=== PATIENT | female | born 1975 | race Caucasian/White ===

== ENCOUNTER 2021-08-06 00:30 | Emergency (ER) | payer OTHER, SELFPAY ==
[2021-08-06 00:31] VITALS: BMI 34.1
[2021-08-06 00:36] VITALS: BP 150/88; PULSE 76; RESP 18; TEMP 36.4; O2SAT 96
--- NOTE | 2021-08-06 00:44 | W.ED.WEAKNES ---
Documented by User: ROSIE Enriquez 08/06/21 02:06 HPI - Weakness General: Chief complaint: Weakness Stated complaint: NOT FEELING WELL Time Seen by Provider: 08/06/21 00:38 History of Present Illness: 46-year-old female comes in today for complaints of weakness and malaise for last 3 days. Patient use methamphetamines up until 4 days ago. Patient reports that for the last 45 days she has been without her medications for her diabetes and her hypothyroidism. Patient appears nontoxic. Patient appears in no pain. Patient denies any fever, vomiting, diarrhea, or chills. Associated symptoms: Denies chest pain, nausea or vomiting Review of Systems General: Reports: 10 or more systems reviewed and unremarkable except in HPI and below Const: Reports: fatigue and malaise Eyes: Denies: change in vision ENMT: Reports: throat pain Card: Denies: chest pain Resp: Denies: dyspnea GI: Denies: nausea, vomiting or diarrhea : Denies: difficulty voiding Musc: Denies: back pain Skin/Breast: Denies: rash Neuro: Reports: weakness in extremities Physical Exam Const: COMMON NORMALS: alert HENMT: COMMON NORMALS: normocephalic HEAD & SCALP: normocephalic Neck/C-Spine: COMMON NORMALS: full ROM Resp: COMMON NORMALS: normal respiratory effort and clear to auscultation bilaterally AUSCULTATION: clear to auscultation bilaterally Cardio: COMMON NORMALS: regular rate and regular rhythm RATE: regular rate RHYTHM: regular rhythm GI: COMMON NORMALS: Soft to palpation and non-tender PALPATION: Yes Soft to palpation Extremity: COMMON NORMALS: no pedal edema Neuro: HANY COMA SCALE: document GCS findings Hany coma scale eye opening: Spontaneous [place] coma scale verbal response: Orientated [place] coma scale motor response: [place]bey commands Hany coma scale total score: 15 SENSORIUM/ORIENTATION: Yes alert Psych: COMMON NORMALS: cooperative Skin: COMMON NORMALS: no rashes or lesions noted GENERAL SKIN EXAM: no rashes or lesions noted Course Vital Signs: Vital signs: Vital Signs Temperature 97.6 F 08/06/21 00:36 Pulse Rate 82 08/06/21 03:40 Respiratory Rate 17 08/06/21 03:40 Blood Pressure 146/99 08/06/21 03:40 Pulse Oximetry 95 08/06/21 03:40 MDM - Weakness Medical Decision Making 46-year-old female comes in today with complaints of malaise and weakness. Patient reports being out of her thyroid medication for the last 3 months. Patient had recently used methamphetamines about 3 to 4 days ago. Patient appears nontoxic. Patient responds appropriate to questions. [place] is dry. Skin is warm and dry. Vital signs are normal. Differential diagnosis includes but not limited to substance abuse, dehydration, hypothyroidism, acute kidney injury. Laboratory values noted a white blood cell count 11.3. CMP noted a creatinine of 1.0. CPK was 800. TSH was 191. We will restart patient on her levothyroxine at 125 mcg. Patient should follow-up with primary care in 1 to 2 weeks for recheck. Encourage patient not to use methamphetamines. Encourage plenty of fluids and follow-up with primary care. Believe the patient CPK was elevated due to dehydration and the use of methamphetamines. Patient has decent renal function I expect her to recover well she was hydrated with 2 L of normal saline. Lab Data : 08/06/21 00:36 08/06/21 00:36 Laboratory Results WBC 11.3 10^3/uL (4.0-10.0) H 08/06/21 00:36 RBC 4.38 10^6/uL (4.1-5.3) 08/06/21 00:36 Hgb 13.3 g/dL (11.5-15.3) 08/06/21 00:36 Hct 40.0 % (37.0-47.0) 08/06/21 00:36 MCV 91.3 fl (81-99) 08/06/21 00:36 MCH 30.4 pg (28.0-34.0) 08/06/21 00:36 MCHC 33.3 g/dL (30.0-36.0) 08/06/21 00:36 RDW 15.0 % (12.1-15.1) 08/06/21 00:36 Plt Count 333 10^3/cmm (130-400) 08/06/21 00:36 MPV 9.4 fL (7.4-10.4) 08/06/21 00:36 Neut % (Auto) 45.8 % 08/06/21 00:36 Lymph % (Auto) 46.2 % 08/06/21 00:36 [facility] % (Auto) 5.0 % 05 00:36 Eos % (Auto) 2.3 % 08/06/21 00:36 Baso % (Auto) 0.3 % 08/06/21 00:36 Neut # (Auto) 5.17 10^3/uL (1.8-7.7) 08/06/21 00:36 Lymph # (Auto) 5.2 10^3/uL (0.8-4.8) H 08/06/21 00:36 [facility] # (Auto) 0.6 10^3/uL (0.2-0.9) 08/06/21 00:36 Eos # (Auto) 0.3 10^3/uL (0.0-0.8) 08/06/21 00:36 Baso # (Auto) 0.0 10^3/uL (0.0-0.1) 08/06/21 00:36 Nucleated RBC % (auto) 0 % 08/06/21 00:36 Nucleated RBCs # 0.0 /100WBC 08/06/21 00:36 Sodium 136 mmol/L (136-145) 08/06/21 00:36 Potassium 3.6 mmol/L (3.5-5.1) 08/06/21 00:36 Chloride 98 mmol/L (98-107) 08/06/21 00:36 Carbon Dioxide 27 mmol/L (22-29) 08/06/21 00:36 Anion Gap 14.6 (5-19) 08/06/21 00:36 BUN 11 mg/dL (6-20) 08/06/21 00:36 Creatinine 1.0 mg/dL (0.5-0.9) H 08/06/21 00:36 GFR Calculation 60.0 mL/min (90-130) L 08/06/21 00:36 Glucose 151 mg/dL (65-115) H 08/06/21 00:36 Calculated Osmolality 284 mOsm/kg (285-295) L 08/06/21 00:36 Calcium 9.3 mg/dL (8.5-10.5) 08/06/21 00:36 Total Bilirubin 0.2 mg/dL (0.15-1.2) 08/06/21 00:36 AST 40 U/L (0-32) H 08/06/21 00:36 ALT 32 U/L (0-33) 08/06/21 00:36 Alkaline Phosphatase 96 IU/L (35-105) 08/06/21 00:36 Creatine Kinase 843 U/L (26-192) H* 08/06/21 00:36 Total Protein 7.1 g/dL (6.6-8.7) 08/06/21 00:36 Albumin 4.4 g/dL (3.5-5.2) 08/06/21 00:36 Globulin 2.7 g/dL (1.3-4.6) 08/06/21 00:36 TSH 191.20 uIU/mL (0.27-4.20) H 08/06/21 00:36 TSH Cancelled 08/06/21 00:36 Urine Color Yellow (Yellow) 08/06/21 01:02 Urine Appearance Clear (CLEAR) 08/06/21 01:02 Urine pH 6.5 (5-7) 08/06/21 01:02 Ur Specific [place] 1.020 (1.005-1.030) 08/06/21 01:02 Urine Protein Neg (Negative) 08/06/21 01:02 Urine Glucose (UA) Norm (Normal) 08/06/21 01:02 Urine Ketones Negative (Negative) 08/06/21 01:02 Urine Blood Neg (Negative) 08/06/21 01:02 Urine Nitrate Negative (Negative) 08/06/21 01:02 Urine Bilirubin Neg (Negative) 08/06/21 01:02 Urine Urobilinogen 1 mg/dL (Negative) H 08/06/21 01:02 Ur Leukocyte Esterase Negative (Negative) 08/06/21 01:02 Discharge Plan Discharge Patient Disposition: Home Clinical Impression: Dehydration Hypothyroidism Qualifiers: Hypothyroidism type: unspecified Qualified Code(s): E03.9 - Hypothyroidism, unspecified Condition: Stable Prescriptions: New levothyroxine 125 mcg capsule 125 mcg PO DAILY Qty: 30 2RF Discharge Orders: Discharge ED (Routine); Ordered 08/06/21 Ordered By: Pedro Luis Waters Discharge Diet: Usual diet Discharge Activity: Increase activity as tolerated Patient Instructions: Hypothyroidism (ED) Activity Restrictions/Additional Instructions: Home and rest. Drink plenty of fluids. Continue with routine medications. Follow-up with primary care for further instructions. Return to ER for new concerns Coding Level of Care Code ED Optomechanical Engineer for Chg Fwd Exam Comprehensive Documented by User: Ta Herrera DO 08/06/21 04:14 HPI - Weakness General: Chief complaint: Weakness Stated complaint: NOT FEELING WELL Time Seen by Provider: 08/06/21 00:38 Physical Exam Neuro: HANY COMA SCALE: document GCS findings [place] coma scale total score: 15 Course Vital Signs: Vital signs: Vital Signs Temperature 97.6 F 08/06/21 00:36 Pulse Rate 82 08/06/21 03:40 Respiratory Rate 17 08/06/21 03:40 Blood Pressure 146/99 08/06/21 03:40 Pulse Oximetry 95 08/06/21 03:40 MDM - Weakness Medical Decision Making 46-year-old female comes in today with complaints of malaise and weakness. Patient reports being out of her thyroid medication for the last 3 months. Patient had recently used methamphetamines about 3 to 4 days ago. Patient appears nontoxic. Patient responds appropriate to questions. [place] is dry. Skin is warm and dry. Vital signs are normal. Differential diagnosis includes but not limited to substance abuse, dehydration, hypothyroidism, acute kidney injury. Laboratory values noted a white blood cell count 11.3. CMP noted a creatinine of 1.0. CPK was 800. TSH was 191. We will restart patient on her levothyroxine at 125 mcg. Patient should follow-up with primary care in 1 to 2 weeks for recheck. Encourage patient not to use methamphetamines. Encourage plenty of fluids and follow-up with primary care. Believe the patient CPK was elevated due to dehydration and the use of methamphetamines. Patient has decent renal function I expect her to recover well she was hydrated with 2 L of normal saline. This patient was originally seen by ROSIE Ascencio.? I agree with his history, evaluation, and treatment. Lab Data : 08/06/21 00:36 08/06/21 00:36 Laboratory Results WBC 11.3 10^3/uL (4.0-10.0) H 08/06/21 00:36 RBC 4.38 10^6/uL (4.1-5.3) 08/06/21 00:36 Hgb 13.3 g/dL (11.5-15.3) 08/06/21 00:36 Hct 40.0 % (37.0-47.0) 08/06/21 00:36 MCV 91.3 fl (81-99) 05 00:36 MCH 30.4 pg (28.0-34.0) 08/06/21 00:36 MCHC 33.3 g/dL (30.0-36.0) 08/06/21 00:36 RDW 15.0 % (12.1-15.1) 08/06/21 00:36 Plt Count 333 10^3/cmm (130-400) 08/06/21 00:36 MPV 9.4 fL (7.4-10.4) 08/06/21 00:36 Neut % (Auto) 45.8 % 08/06/21 00:36 Lymph % (Auto) 46.2 % 08/06/21 00:36 [facility] % (Auto) 5.0 % 08/06/21 00:36 Eos % (Auto) 2.3 % 08/06/21 00:36 Baso % (Auto) 0.3 % 08/06/21 00:36 Neut # (Auto) 5.17 10^3/uL (1.8-7.7) 08/06/21 00:36 Lymph # (Auto) 5.2 10^3/uL (0.8-4.8) H 08/06/21 00:36 [facility] # (Auto) 0.6 10^3/uL (0.2-0.9) 08/06/21 00:36 Eos # (Auto) 0.3 10^3/uL (0.0-0.8) 08/06/21 00:36 Baso # (Auto) 0.0 10^3/uL (0.0-0.1) 08/06/21 00:36 Nucleated RBC % (auto) 0 % 08/06/21 00:36 Nucleated RBCs # 0.0 /100WBC 08/06/21 00:36 Sodium 136 mmol/L (136-145) 08/06/21 00:36 Potassium 3.6 mmol/L (3.5-5.1) 08/06/21 00:36 Chloride 98 mmol/L (98-107) 08/06/21 00:36 Carbon Dioxide 27 mmol/L (22-29) 08/06/21 00:36 Anion Gap 14.6 (5-19) 08/06/21 00:36 BUN 11 mg/dL (6-20) 08/06/21 00:36 Creatinine 1.0 mg/dL (0.5-0.9) H 08/06/21 00:36 GFR Calculation 60.0 mL/min (90-130) L 08/06/21 00:36 Glucose 151 mg/dL (65-115) H 08/06/21 00:36 Calculated Osmolality 284 mOsm/kg (285-295) L 08/06/21 00:36 Calcium 9.3 mg/dL (8.5-10.5) 08/06/21 00:36 Total Bilirubin 0.2 mg/dL (0.15-1.2) 08/06/21 00:36 AST 40 U/L (0-32) H 08/06/21 00:36 ALT 32 U/L (0-33) 08/06/21 00:36 Alkaline Phosphatase 96 IU/L (35-105) 08/06/21 00:36 Creatine Kinase 843 U/L (26-192) H* 08/06/21 00:36 Total Protein 7.1 g/dL (6.6-8.7) 08/06/21 00:36 Albumin 4.4 g/dL (3.5-5.2) 08/06/21 00:36 Globulin 2.7 g/dL (1.3-4.6) 08/06/21 00:36 TSH 191.20 uIU/mL (0.27-4.20) H 08/06/21 00:36 TSH Cancelled 08/06/21 00:36 Urine Color Yellow (Yellow) 08/06/21 01:02 Urine Appearance Clear (CLEAR) 08/06/21 01:02 Urine pH 6.5 (5-7) 08/06/21 01:02 Ur Specific [place] 1.020 (1.005-1.030) 08/06/21 01:02 Urine Protein Neg (Negative) 08/06/21 01:02 Urine Glucose (UA) Norm (Normal) 08/06/21 01:02 Urine Ketones Negative (Negative) 08/06/21 01:02 Urine Blood Neg (Negative) 08/06/21 01:02 Urine Nitrate Negative (Negative) 08/06/21 01:02 Urine Bilirubin Neg (Negative) 08/06/21 01:02 Urine Urobilinogen 1 mg/dL (Negative) H 08/06/21 01:02 Ur Leukocyte Esterase Negative (Negative) 08/06/21 01:02 Discharge Plan Discharge Patient Disposition: Home Clinical Impression: Dehydration Hypothyroidism Qualifiers: Hypothyroidism type: unspecified Qualified Code(s): E03.9 - Hypothyroidism, unspecified Condition: Stable Prescriptions: New levothyroxine 125 mcg capsule 125 mcg PO DAILY Qty: 30 2RF Discharge Orders: Discharge ED (Routine); Ordered 08/06/21 Ordered By: Pedro Luis Waters Discharge Diet: Usual diet Discharge Activity: Increase activity as tolerated Patient Instructions: Hypothyroidism (ED) Activity Restrictions/Additional Instructions: Home and rest. Drink plenty of fluids. Continue with routine medications. Follow-up with primary care for further instructions. Return to ER for new concerns Coding Level of Care Code ED Optomechanical Engineer for [place] Fwd Exam Comprehensive
[2021-08-06 00:46] LABS: Basophils % 0.3 %; Eosinophils # 0.3 10^3/uL (0.0-0.8); Eosinophils % 2.3 %; Hemoglobin 13.3 g/dL (11.5-15.3); Lymphocytes # 5.2 10^3/uL (0.8-4.8); Lymphocytes % 46.2 %; Mean Corpuscular HGB Conc 33.3 g/dL (30.0-36.0); Mean Corpuscular Hemoglobin 30.4 pg (28.0-34.0); Mean Corpuscular Volume 91.3 fl (81-99); Mean Platelet Volume 9.4 fL (7.4-10.4); Monocytes # 0.6 10^3/uL (0.2-0.9); Neutrophils # 5.17 10^3/uL (1.8-7.7); Neutrophils % 45.8 %; Nucleated Red Blood Cells % 0 %; Platelet Count 333 10^3/cmm (130-400); Red Blood Count 4.38 10^6/uL (4.1-5.3); White Blood Count 11.3 10^3/uL (4.0-10.0)
[2021-08-06] MEDS: sodium chloride 0.9% 1,000 ML 999 ML IV ×2 (01:07→01:43)
[2021-08-06 01:14] LABS: Alanine Aminotransferase 32 U/L (0-33); Albumin Level 4.4 g/dL (3.5-5.2); Alkaline Phosphatase 96 IU/L (35-105); Anion Gap 14.6 (5-19); Aspartate Amino Transferase 40 U/L (0-32); Blood Urea Nitrogen 11 mg/dL (6-20); Calcium 9.3 mg/dL (8.5-10.5); Carbon Dioxide 27 mmol/L (22-29); Chloride 98 mmol/L (98-107); Globulin 2.7 g/dL (1.3-4.6); Glucose 151 mg/dL (65-115); Osmolality Calculated 284 mOsm/kg (285-295); Potassium 3.6 mmol/L (3.5-5.1); Sodium 136 mmol/L (136-145); Total Bilirubin 0.2 mg/dL (0.15-1.2); Total Protein 7.1 g/dL (6.6-8.7)
[2021-08-06 01:14] LABS: Add Urine Microscopic? NO; Charge for UA Resulting for Rev
[2021-08-06 01:22] LABS: Bilirubin Urine Neg (Negative); Blood Urine Neg (Negative); Glucose Urine UA Norm (Normal); Ketones Urine Negative (Negative); Leukocyte Esterase Urine Negative (Negative); Nitrate Urine Negative (Negative); Protein Urine Neg (Negative); Urine Appearance Clear (CLEAR); Urine Color Yellow (Yellow); Urobilinogen Urine 1 mg/dL (Negative); pH Urine 6.5 (5-7)
[2021-08-06 01:23] LABS: Creatine Phosphokinase 843 U/L (26-192)
[2021-08-06] MEDS: levothyroxine 125 mcg Tablet PO (02:15)
[2021-08-06 03:40] VITALS: BP 146/99; PULSE 82; RESP 17; O2SAT 95
--- NOTE | 2021-08-30 15:39 | DCPLANNER ---
late entry - manager of case had message to speak with patient about getting established with a primary care physician. cash manager was unable to speak with patient or leave a voicemail for patient.
== END 2021-08-06 03:52 | disposition home or self-care (01) ==
PROVIDERS: Emergency Provider Nurse Practitioner Family
DX: E86.0 Dehydration (principal); E03.9 Hypothyroidism, unspecified; Z91.128 Patient's intentional underdosing of medication regimen for other reason; F15.90 Other stimulant use, unspecified, uncomplicated
CPT/HCPCS: 80053; 81003; 82550; 84443; 85025; 96360; 96361; 99284; J7030